=== PATIENT | female | born 1985 | race Caucasian/White ===

== ENCOUNTER 2016-05-18 09:45 | Day surgery (SDC) | payer OTHER ==
[~2016-05-18] VITALS: Ht 170.2 cm; Wt 90.7 kg
[~2016-05-18 09:45] MED LIST: AMOXICILLIN500 M1 PO; ASCORBIC ACID500 M3 PO; DEBROX15 ML LEFT EAR; DILAUDID2 MG PO; DOCUSATE SODIU100 MG PO; DULCOLAX5 MG PO; ECOTRIN325 MG PO; ENDOCET 5-3251 EACH PO; FERROUS SULFAT325 MG PO; HYDROMORPHONE HC2 MG PO; HYDROMORPHONE HC4 MG PO; LEVOTHYROXINE25 MCG PO; LOVENOX40 MG/0.4 SC; NAPROSYN500 MG PO; NAPROXEN500 MG PO; NIFEDIPINE ER30 MG PO; NOHOMEMEDS; PRENATAL TABLE1 EAC3 PO; RHINOCORT AQUA8.6 G1 NS; TESSALON200 MG PO; TORADOL10 MG PO; TRAMADOL HCL50 MG PO; TYLENOL EXTRA500 MG PO; TYLENOL REGULA325 MG PO; ULTRAM50 MG PO; VITAMIN C500 M1 PO; VITAMIN D32000 UNI1 PO; ZANTAC150 MG PO; ZYRTEC10 M2 PO
[2016-05-18 10:29] VITALS: BP 124/79
[2016-05-18 18:09] VITALS: BP 132/81
[2016-05-18 20:00] VITALS: BP 136/78
[2016-05-19 00:23] VITALS: BP 121/70
[2016-05-19 08:13] VITALS: BP 128/79
[2016-05-19] MEDS ORDERED: LOVENOX40 MG/0.4 SC (08:57)
[2016-05-19] MEDS ORDERED: HYDROMORPHONE HC2 MG PO (08:57)
[2016-05-19 16:30] VITALS: BP 124/69
== END 2016-05-19 17:40 | disposition home or self-care (01) ==
LOC: SDC 09:45 → 2SOUTH 13:50 → 3EAST 13:50 → SDC 14:27 → 3EAST 17:41
PROC: 0QP Lower Bones, Removal (ICD-10-PCS; principal; 2016-05-18)
DX: T84.89XA Other specified complication of internal orthopedic prosthetic devices, implants and grafts, initial encounter (principal); T81.31XA Disruption of external operation (surgical) wound, not elsewhere classified, initial encounter; Y83.1 Surgical operation with implant of artificial internal device as the cause of abnormal reaction of the patient, or of later complication, without mention of misadventure at the time of the procedure; F17.200 Nicotine dependence, unspecified, uncomplicated
CPT/HCPCS: 73600; 73610; 76000; G0378; J0690; J1100; J1170; J1650; J2175; J2405; J2795; J3010; J7030

== ENCOUNTER 2016-12-06 22:50 | Emergency (ER) | payer SELFPAY ==
[~2016-12-06] VITALS: Ht 170.2 cm; Wt 95.8 kg
[2016-12-07] MEDS ORDERED: AMOXICILLIN875 MG PO (01:15)
[2016-12-07] MEDS ORDERED: ULTRAM50 MG PO (01:15)
[2016-12-07 01:44] VITALS: BP 133/99
== END 2016-12-07 01:45 | disposition home or self-care (01) ==
LOC: RME 22:50 → EME 22:50 → RME 12-07 01:45
DX: K08.89 Other specified disorders of teeth and supporting structures (principal); R68.84 Jaw pain; H92.02 Otalgia, left ear; R51 Headache; K03.81 Cracked tooth; R10.9 Unspecified abdominal pain; Z87.891 Personal history of nicotine dependence

== ENCOUNTER 2017-11-04 13:18 | Emergency (ER) | payer SELFPAY ==
[~2017-11-04] VITALS: Ht 170.2 cm; Wt 90.4 kg
[~2017-11-04 13:18] MED LIST changes: +AMOXICILLIN875 MG PO
[2017-11-04] MEDS ORDERED: PEN-VEE K,VEET500 MG PO (14:03)
[2017-11-04] MEDS ORDERED: MOTRIN800 MG PO (14:03)
[2017-11-04] MEDS ORDERED: ULTRACET1 TABLET PO (14:05)
[2017-11-04 14:22] VITALS: BP 132/76
== END 2017-11-04 14:23 | disposition home or self-care (01) ==
LOC: EME 13:18
PROC: 3E0T3BZ Introduction of Anesthetic Agent into Peripheral Nerves and Plexi, Percutaneous Approach (ICD-10-PCS; principal; 2017-11-04)
DX: K03.81 Cracked tooth (principal); K02.9 Dental caries, unspecified
CPT/HCPCS: 99281; 99283